=== PATIENT | male | born 1965 | race Caucasian/White ===

== ENCOUNTER 2018-02-25 22:31 | Emergency (ER) | payer OTHER ==
[~2018-02-25] VITALS: Ht 172.7 cm; Wt 90.7 kg
--- NOTE | 2018-02-25 22:35 | NUR ---
Patient brought in by rescue, reports to have chest pain/tightness, pain increases with movement and cough, c/o cough x 1 day.
--- NOTE | 2018-02-25 22:40 | NUR ---
Dr. Ayala at bedside for MSE.
[2018-02-25] MEDS ORDERED: KETOROLAC TROMETHAMINE 15 MG INJ IV ONE (23:00)
[2018-02-25 23:22] LABS: CREATININE 1.4 mg/dL (0.6-1.3); POTASSIUM 4.3 mmol/L (3.5-5.1)
[2018-02-25 23:30] LABS: BASOPHILS # (AUTO) 0.1 K/uL (0.0-8.0); BASOPHILS % (AUTO) 0.7 % (0.0-2.0); EOSINOPHILS # (AUTO) 0.3 K/uL (0.0-0.7); EOSINOPHILS % (AUTO) 3.1 % (0.0-7.0); HEMATOCRIT 43.1 % (36.7-47.1); HEMOGLOBIN 15.3 g/dL (12.5-16.3); LYMPHOCYTES # (AUTO) 2.3 K/uL (20.0-40.0); LYMPHOCYTES % (AUTO) 20.9 % (20.5-51.5); MEAN CORPUSCULAR HEMOGLOBIN 31.7 uug (23.8-33.4); MEAN CORPUSCULAR HGB CONC 36 g/dL (32.5-36.3); MEAN CORPUSCULAR VOLUME 89.3 fL (73.0-96.2); MONOCYTES # (AUTO) 0.8 K/uL (2.0-10.0); NEUTROPHILS # (AUTO) 7.4 K/uL (1.8-8.9); NEUTROPHILS % (AUTO) 68.3 % (38.5-71.5); PLATELET COUNT (AUTO) 295 K/uL (152-348); RED BLOOD CELL COUNT(AUTO) 4.83 MIL/uL (4.06-5.63); WHITE BLOOD COUNT (AUTO) 10.8 K/uL (3.6-10.2)
[2018-02-25 23:34] LABS: BILIRUBIN,DIRECT 0.1 mg/dL (0.0-0.2); BILIRUBIN,TOTAL 0.5 mg/dL (0.2-1.0); TOTAL PROTEIN, SERUM 6.9 g/dL (6.4-8.2)
[2018-02-25] MEDS ORDERED: KETOROLAC TROMETHAMINE 30 MG INJ ONE (23:44)
--- NOTE | 2018-02-26 00:21 | NUR ---
Patient states pain around 7/10 on chest. MD notified.
[2018-02-26] MEDS ORDERED: HYDROCODONE/APAP 5-325MG TABLET ONE (00:28)
[2018-02-26] MEDS ORDERED: HYDROCODONE/APAP 5-325MG TABLET PO ONE (00:30)
--- NOTE | 2018-02-26 00:49 | NUR ---
Patient states chest pain has gone down, now about 02/09.
--- NOTE | 2018-02-26 01:15 | NUR ---
Patient discharged to home in stable conditon. Written and verbal after care instructions given. Patient verbalizes understanding of instructions. Patient ambulated out of ER with steady gait, no acute signs of distress, VSS, all belongings taken.
[2018-02-26 01:20] VITALS: BP 99/59
== END 2018-02-26 01:21 | disposition home or self-care (01) ==
LOC: ER 22:32
DX: R07.89 Other chest pain (principal)
CPT/HCPCS: 36415; 71045; 80048; 80076; 83880; 84484; 85025; 85379; 85730; 93005; 96374; 99285; A4663; J1885; 70030-TC